=== PATIENT | female | born 1970 | race Two or more races ===

== ENCOUNTER 2019-06-20 07:39 | Outpatient (CLI) | payer OTHER | END 2019-06-20 07:47 | disposition home or self-care (01) | LOC: SONOGRAMA 07:39 | DX: E04.8 Other specified nontoxic goiter (principal) ==

== ENCOUNTER 2024-05-29 08:17 | Outpatient (CLI) | payer OTHER | END 2024-05-29 08:24 | disposition home or self-care (01) | LOC: SONOGRAMA 08:17 | PROVIDERS: ATTEND Pathology Anatomic Pathology & Clinical Pathology | DX: D44.0 Neoplasm of uncertain behavior of thyroid gland (principal); E04.8 Other specified nontoxic goiter ==